=== PATIENT | female | born 1990 | race Caucasian/White ===

== ENCOUNTER 2017-05-27 18:03 | Emergency (ER) | payer OTHER ==
[~2017-05-27] VITALS: Ht 152.4 cm; Wt 56.2 kg
[2017-05-27 18:21] VITALS: BP 124/80; Ht 152.4 cm; Wt 56.2 kg
== END 2017-05-27 20:00 | disposition home or self-care (01) ==
LOC: ED 18:03
DX: H60.91 Unspecified otitis externa, right ear (principal)